=== PATIENT | male | born 1945 | race Caucasian/White ===

== ENCOUNTER 2017-03-31 12:27 | Inpatient (IN) ==
[2017-03-31] MEDS ORDERED: diphenhydrAMINE CAP 25 MG CAPSULE PO PRN (15:23)
[2017-03-31] MEDS ORDERED: POTASSIUM CHLORIDE 20 MEQ TABLET PO PRN (15:23)
[2017-03-31] MEDS ORDERED: MAGNESIUM SULF RIDER 2 GM in PREMIX 1 EACH IV PRN (15:23)
[2017-03-31] MEDS ORDERED: MAGNESIUM SULF RIDER 4 GM in PREMIX 1 EACH IV PRN (15:23)
[2017-03-31] MEDS ORDERED: DOCUSATE SODIUM 100 MG CAPSULE PO PRN (15:23)
[2017-03-31] MEDS ORDERED: LACTULOSE 20 GM/30 ML UDCUP PO PRN (15:23)
[2017-03-31] MEDS ORDERED: ONDANSETRON 4 MG/2 ML VIAL IV PRN (15:23)
[2017-03-31] MEDS ORDERED: ACETAMINOPHEN 325 MG TABLET PO PRN (15:23)
[2017-03-31] MEDS ORDERED: ZALEPLON 5 MG CAPSULE PO PRN (15:23)
[2017-03-31] MEDS ORDERED: ceFAZolin 1,000 MG VIAL IRRIG ONE (15:36)
[2017-03-31] MEDS ORDERED: diphenhydrAMINE CAP 25 MG CAPSULE PO ONE (15:36)
[2017-03-31] MEDS ORDERED: DIAZEPAM 5 MG TABLET PO ONE (15:36)
[2017-03-31 16:20] LABS: Basophils # 0.1 10*3/uL (0.0-0.2); Basophils % 0.7 % (0.0-0.8); Eosinophils # 0.7 10*3/uL (0.0-0.87); Eosinophils % 7.4 % (0.00-10.9); Hematocrit 34.4 VOL% (42.0-52.0); Hemoglobin 11.9 GM/DL (14.0-18.0); Immature Granulocytes % 0.4 %; Immature Granulocytes Absolute 0.04 #; Lymphocytes # 2.5 10*3/uL (1.4-4.0); Lymphocytes % 26.3 % (21.2-54.2); Mean Corpuscular HGB Conc 34.6 GM/DL (32-36); Mean Corpuscular Hemoglobin 34 PG (27-34); Mean Corpuscular Volume 98.9 FL (87-102); Mean Platelet Volume 9.7 FL (9.6-12.0); Monocytes # 0.7 10*3/uL (0.11-0.8); Monocytes % 7.7 % (1.7-12.7); Neutrophils # 5.5 10*3/uL (1.4-7.4); Neutrophils % 57.5 % (38.7-73.9); Platelet Count 230 T/CUMM (130-400); Red Blood Count 3.48 MC/CUMM (3.8-5.5); Red Cell Distribution Width 14.2 % (9.3-17.3); White Blood Count 9.6 T/CUMM (4-12)
[2017-03-31 16:39] LABS: Albumin 3.5 G/DL (3.4-5.0); Bilirubin,Total 0.5 MG/DL (0.2-1.0); Calcium 9.4 MG/DL (8.5-10.1); Osmolality,Calculated 292.4 MOS/KG (273-304); Potassium 4.3 MMOL/L (3.5-5.1); Total Protein 6.7 G/DL (6.4-8.3)
[2017-03-31] MEDS ORDERED: oxyCODONE/ACETAMINOPHEN 5-325 MG TABLET PO PRN (16:52)
[2017-03-31] MEDS: PANTOPRAZOLE 40 MG TABLET PO SCH (20:47)
[2017-03-31] MEDS: FUROSEMIDE 40 MG TABLET PO SCH (20:47)
[2017-04-01 05:39] LABS: Basophils # 0.1 10*3/uL (0.0-0.2); Basophils % 0.8 % (0.0-0.8); Eosinophils # 0.7 10*3/uL (0.0-0.87); Eosinophils % 7.8 % (0.00-10.9); Hematocrit 35.7 VOL% (42.0-52.0); Hemoglobin 12.4 GM/DL (14.0-18.0); Immature Granulocytes % 0.3 %; Immature Granulocytes Absolute 0.03 #; Lymphocytes # 2.9 10*3/uL (1.4-4.0); Lymphocytes % 31.8 % (21.2-54.2); Mean Corpuscular HGB Conc 34.7 GM/DL (32-36); Mean Corpuscular Hemoglobin 34 PG (27-34); Mean Corpuscular Volume 97.5 FL (87-102); Mean Platelet Volume 9.7 FL (9.6-12.0); Monocytes # 0.7 10*3/uL (0.11-0.8); Neutrophils # 4.7 10*3/uL (1.4-7.4); Neutrophils % 51.3 % (38.7-73.9); Platelet Count 230 T/CUMM (130-400); Red Blood Count 3.66 MC/CUMM (3.8-5.5); Red Cell Distribution Width 13.9 % (9.3-17.3); White Blood Count 9.2 T/CUMM (4-12)
[2017-04-01 05:59] LABS: Calcium 9.3 MG/DL (8.5-10.1); Magnesium 2.3 MG/DL (1.8-2.4); Osmolality,Calculated 283.7 MOS/KG (273-304); Potassium 3.8 MMOL/L (3.5-5.1)
[2017-04-01 06:00] LABS: INR 1.2; PT Patient Result 12.7 SECS
[2017-04-01] MEDS ORDERED: DILTIAZEM CD 240 MG CAPSULE PO SCH (09:00)
[2017-04-01] MEDS ORDERED: ceFAZolin 1,000 MG VIAL IRRIG ONE (10:00)
[2017-04-01] MEDS ORDERED: diphenhydrAMINE CAP 25 MG CAPSULE PO ONE (10:00)
[2017-04-01] MEDS ORDERED: DIAZEPAM 5 MG TABLET PO ONE (10:00)
[2017-04-01] MEDS: ASPIRIN CHEW 81 MG TABLET PO SCH (10:02)
[2017-04-01] MEDS: FUROSEMIDE 40 MG TABLET PO SCH ×2 (10:03→20:53)
[2017-04-01] MEDS: amLODIPine 10 MG TABLET PO SCH (10:03)
[2017-04-01] MEDS: POTASSIUM CHLORIDE 10 MEQ TABLET PO SCH (10:03)
[2017-04-01] MEDS: DILTIAZEM CD 240 MG CAPSULE PO SCH (10:03)
[2017-04-01] MEDS: SIMVASTATIN 20 MG TABLET PO SCH (10:04)
[2017-04-01] MEDS: LISINOPRIL 10 MG TABLET PO SCH (10:04)
[2017-04-01] MEDS: PANTOPRAZOLE 40 MG TABLET PO SCH (10:04)
[2017-04-01] MEDS ORDERED: HEPARIN 10,000 UNIT/10 ML VIAL ONE (12:25)
[2017-04-01] MEDS ORDERED: PHENYLEPHRINE 50 MG/5 ML VIAL ONE (12:25)
[2017-04-01] MEDS ORDERED: KETOROLAC 30 MG/1 ML VIAL ONE (12:25)
[2017-04-01] MEDS ORDERED: ETOMIDATE 20 MG/10 ML VIAL IV ONE (12:25)
[2017-04-01] MEDS ORDERED: PROPOFOL 200 MG/20 ML VIAL IV ONE (12:25)
[2017-04-01] MEDS ORDERED: ONDANSETRON 4 MG/2 ML VIAL ONE (12:25)
[2017-04-01] MEDS ORDERED: PHENYLEPHRINE 1 MG/10 ML SYRINGE IV ONE (12:25)
[2017-04-01] MEDS ORDERED: LIDOCAINE 1% 5 ML VIAL ONE (12:25)
[2017-04-01] MEDS ORDERED: DEXAMETHASONE 10 MG/1 ML VIAL ONE (12:25)
[2017-04-01] MEDS ORDERED: LIDOCAINE 1% 20 ML VIAL ONE (12:31)
[2017-04-01] MEDS ORDERED: HEPARIN/NACL 0.9% 2 UNITS/ML 500 ML IV ONE ×2 (12:31→13:38)
[2017-04-01] MEDS ORDERED: HEPARIN/NACL 0.9% 2 UNITS/ML 1,000 ML IV ONE (12:33)
[2017-04-01] MEDS ORDERED: ceFAZolin 1,000 MG VIAL ONE (12:34)
[2017-04-01] MEDS ORDERED: oxyCODONE/ACETAMINOPHEN 5-325 MG TABLET PO PRN (14:26)
[2017-04-01] MEDS ORDERED: DEXTROSE 50% 25 GM/50 ML VIAL IV PRN (14:30)
[2017-04-01] MEDS ORDERED: GLUCAGON 1 MG VIAL IM PRN (14:30)
[2017-04-01] MEDS: INSULIN REGULAR 100 UNIT/ML SUBCUT SCH ×2 (17:01→22:17)
[2017-04-01] MEDS: valACYclovir 500 MG TABLET PO SCH ×2 (17:06→21:37)
[2017-04-01] MEDS: CARBIDOPA/LEVODOPA 10-100 MG TABLET PO SCH ×2 (17:07→21:37)
[2017-04-01] MEDS: SODIUM CHLORIDE 0.9% 1,000 ML IV SCH (17:10)
[2017-04-01] MEDS ORDERED: METOPROLOL TARTRATE 100 MG TABLET PO ONE (17:29)
[2017-04-01] MEDS: METOPROLOL TARTRATE 100 MG TABLET PO SCH (20:53)
[2017-04-01] MEDS: GABAPENTIN 600 MG TABLET PO SCH (21:37)
[2017-04-01] MEDS ORDERED: fentaNYL 100 MCG/2 ML VIAL ONE (22:39)
[2017-04-01] MEDS ORDERED: MIDAZOLAM 2 MG/2 ML VIAL ONE (22:39)
[2017-04-01] MEDS ORDERED: KETAMINE 500 MG/10 ML VIAL ONE (22:40)
[2017-04-02] MEDS: SODIUM CHLORIDE 0.9% 1,000 ML IV SCH ×3 (01:31→13:43)
[2017-04-02 04:47] LABS: Basophils % 0.2 % (0.0-0.8); Hemoglobin 11.5 GM/DL (14.0-18.0); Immature Granulocytes % 0.7 %; Lymphocytes # 1.1 10*3/uL (1.4-4.0); Lymphocytes % 6.9 % (21.2-54.2); Mean Corpuscular HGB Conc 34.8 GM/DL (32-36); Mean Corpuscular Hemoglobin 34 PG (27-34); Mean Corpuscular Volume 96.8 FL (87-102); Mean Platelet Volume 10.1 FL (9.6-12.0); Monocytes # 0.4 10*3/uL (0.11-0.8); Monocytes % 2.6 % (1.7-12.7); Neutrophils # 13.7 10*3/uL (1.4-7.4); Neutrophils % 89.6 % (38.7-73.9); Platelet Count 241 T/CUMM (130-400); Red Blood Count 3.41 MC/CUMM (3.8-5.5); Red Cell Distribution Width 13.6 % (9.3-17.3); White Blood Count 15.3 T/CUMM (4-12)
[2017-04-02 05:19] LABS: Calcium 8.9 MG/DL (8.5-10.1); Potassium 4.4 MMOL/L (3.5-5.1)
[2017-04-02] MEDS ORDERED: glipiZIDE 5 MG TABLET PO SCH (08:00)
[2017-04-02] MEDS ORDERED: LEVOTHYROXINE 25 MCG TABLET PO SCH (09:00)
[2017-04-02] MEDS ORDERED: LISINOPRIL 10 MG TABLET PO SCH (09:00)
[2017-04-02] MEDS ORDERED: metOLazone 5 MG TABLET PO SCH (09:00)
[2017-04-02] MEDS ORDERED: PANTOPRAZOLE 40 MG TABLET PO SCH (09:00)
[2017-04-02] MEDS: INSULIN REGULAR 100 UNIT/ML SUBCUT SCH ×2 (09:31→12:04)
[2017-04-02] MEDS: SIMVASTATIN 20 MG TABLET PO SCH (09:32)
[2017-04-02] MEDS: LISINOPRIL 10 MG TABLET PO SCH (09:32)
[2017-04-02] MEDS: amLODIPine 10 MG TABLET PO SCH (09:32)
[2017-04-02] MEDS: FUROSEMIDE 40 MG TABLET PO SCH (09:32)
[2017-04-02] MEDS: METOPROLOL TARTRATE 100 MG TABLET PO SCH (09:33)
[2017-04-02] MEDS: CARBIDOPA/LEVODOPA 10-100 MG TABLET PO SCH (09:33)
[2017-04-02] MEDS: GABAPENTIN 600 MG TABLET PO SCH (09:33)
[2017-04-02] MEDS: ASPIRIN CHEW 81 MG TABLET PO SCH (09:34)
[2017-04-02] MEDS: PANTOPRAZOLE 40 MG TABLET PO SCH (09:34)
[2017-04-02] MEDS: POTASSIUM CHLORIDE 10 MEQ TABLET PO SCH (09:34)
[2017-04-02] MEDS: DILTIAZEM CD 240 MG CAPSULE PO SCH (09:34)
[2017-04-02 12:37] VITALS: BP 125/64
== END 2017-04-02 14:00 | disposition home or self-care (01) | DRG 229 ==
LOC: N.CARD 12:27 → N.TELEN 12:27 → EDSTATUS 04-01 13:00
PROVIDERS: ADMIT Internal Medicine Cardiovascular Disease; ATTEND Internal Medicine Cardiovascular Disease
PROC: CLMICRA (2017-04-01 13:15)

== ENCOUNTER 2017-08-17 14:10 | Inpatient (IN) ==
[2017-08-17] MEDS ORDERED: GLUCAGON 1 MG VIAL IM PRN (16:56)
[2017-08-17] MEDS ORDERED: ONDANSETRON 4 MG/2 ML VIAL IV PRN (16:56)
[2017-08-17] MEDS ORDERED: DEXTROSE 50% 25 GM/50 ML VIAL IV PRN (16:56)
[2017-08-17] MEDS ORDERED: NITROGLYCERIN SL 0.4 MG TABLET SL PRN (17:00)
[2017-08-17] MEDS: SODIUM CHLOR 0.9% KCL 20 MEQ 20 MEQ/1,000 ML BAG IV SCH (17:35)
[2017-08-17] MEDS ORDERED: diphenhydrAMINE CAP 25 MG CAPSULE PO PRN (17:42)
[2017-08-17 20:07] LABS: Hepatitis A Ab IgM Result Negative (Negative); Hepatitis B Core IgM Quant 0.18 Index; Hepatitis B Core IgM Result Negative (Negative); Hepatitis B Surface Ag Quant 0.23 Index; Hepatitis B Surface Ag Result Negative (Negative); Hepatitis C Virus Ab Quant > 11.00 Index; Hepatitis C Virus Ab Result Positive (Negative)
[2017-08-17] MEDS ORDERED: ENOXAPARIN 40 MG/0.4 ML SYRINGE SUBCUT SCH (21:00)
[2017-08-17] MEDS: METOPROLOL TARTRATE 100 MG TABLET PO SCH (21:40)
[2017-08-17] MEDS: INSULIN LISPRO 100 UNIT/ML SUBCUT SCH (21:40)
[2017-08-17] MEDS: CARBIDOPA/LEVODOPA 10-100 MG TABLET PO SCH (21:40)
[2017-08-17] MEDS: FUROSEMIDE 40 MG TABLET PO SCH (21:40)
[2017-08-17] MEDS: GABAPENTIN 600 MG TABLET PO SCH (21:40)
[2017-08-18 05:45] LABS: Basophils # 0.1 10*3/uL (0.0-0.2); Hemoglobin 10.6 GM/DL (14.0-18.0); Immature Granulocytes % 0.3 %; Immature Granulocytes Absolute 0.02 #; Lymphocytes # 1.6 10*3/uL (1.4-4.0); Lymphocytes % 23.1 % (21.2-54.2); Mean Corpuscular HGB Conc 36.6 GM/DL (32-36); Mean Corpuscular Hemoglobin 31 PG (27-34); Mean Corpuscular Volume 85.5 FL (87-102); Mean Platelet Volume 10.4 FL (9.6-12.0); Monocytes # 0.7 10*3/uL (0.11-0.8); Monocytes % 10.9 % (1.7-12.7); Neutrophils # 3.5 10*3/uL (1.4-7.4); Neutrophils % 50.7 % (38.7-73.9); Platelet Count 338 T/CUMM (130-400); Red Blood Count 3.39 MC/CUMM (3.8-5.5); White Blood Count 6.8 T/CUMM (4-12)
[2017-08-18 06:17] LABS: Eosinophils 16 % (0-10); Giant Platelets Few; Hypochromasia 1+; Lymphocytes 21 % (20-55); Ovalocytes Slight; Platelet Estimate Adequate; Segmented Neutrophils 52 % (50-85); Target Cells Few; Total Cells Counted 100
[2017-08-18 06:37] LABS: Alanine Aminotransferase 81 U/L (16-61); Albumin 2.7 G/DL (3.4-5.0); Alkaline Phosphatase 274 U/L (45-117); Aspartate Amino Transferase 84 U/L (0-37); Blood Urea Nitrogen 15 MG/DL (7-18); Calcium 8.3 MG/DL (8.5-10.1); Cholesterol 159 MG/DL (50-200); Glucose 99 MG/DL (74-106); HDL Cholesterol < 10 MG/DL (40-60); Osmolality,Calculated 279.4 MOS/KG (273-304); Potassium 3.5 MMOL/L (3.5-5.1); Sodium 140 MMOL/L (136-145); Thyroid Stimulating Hormone 0.635 uIU/ml (0.358-3.74); Total Protein 6.2 G/DL (6.4-8.3); Triglycerides 326 MG/DL (2-150); VLDL CHOLESTEROL 65.2 MG/DL
[2017-08-18] MEDS: POTASSIUM CHLORIDE 10 MEQ TABLET PO SCH (08:55)
[2017-08-18] MEDS: GABAPENTIN 600 MG TABLET PO SCH ×3 (08:55→21:33)
[2017-08-18] MEDS: METOPROLOL TARTRATE 100 MG TABLET PO SCH ×2 (08:55→21:33)
[2017-08-18] MEDS: FUROSEMIDE 40 MG TABLET PO SCH ×2 (08:55→21:33)
[2017-08-18] MEDS: DILTIAZEM CD 240 MG CAPSULE PO SCH (08:55)
[2017-08-18] MEDS: SODIUM CHLOR 0.9% KCL 20 MEQ 20 MEQ/1,000 ML BAG IV SCH (08:55)
[2017-08-18] MEDS: LEVOTHYROXINE 25 MCG TABLET PO SCH (08:55)
[2017-08-18] MEDS: glipiZIDE 5 MG TABLET PO SCH (08:55)
[2017-08-18] MEDS: PARoxetine 20 MG TABLET PO SCH (08:56)
[2017-08-18] MEDS: metOLazone 5 MG TABLET PO SCH (08:56)
[2017-08-18] MEDS: PANTOPRAZOLE 40 MG TABLET PO SCH (08:56)
[2017-08-18] MEDS: amLODIPine 10 MG TABLET PO SCH (08:56)
[2017-08-18] MEDS: LISINOPRIL 10 MG TABLET PO SCH (08:56)
[2017-08-18] MEDS: CARBIDOPA/LEVODOPA 10-100 MG TABLET PO SCH ×3 (08:56→21:33)
[2017-08-18] MEDS ORDERED: ASPIRIN CHEW 81 MG TABLET PO SCH (09:00)
[2017-08-18] MEDS: INSULIN LISPRO 100 UNIT/ML SUBCUT SCH ×4 (09:07→21:34)
[2017-08-18 10:48] LABS: Apearance,Urine CLEAR (Clear); Blood, Urine Small mg/dL (Negative); Glucose,Urine (UA) Negative (Negative); Ketones,Urine Negative (Negative); Mucus,Urine Occasional /LPF (Occasional); Nitrite,Urine Negative (Negative); Protein,Urine Negative; RBC,Urine <1 /HPF (0-4); Squamous Epithelial Cell,Urine Occasional /HPF (0-10); Urine Color Amber (Yellow); Urine Specific Gravity 1.011 (1.001-1.035); WBC,Urine <1 /HPF (0-6)
[2017-08-18 10:49] LABS: Bilirubin,Urine Moderate mg/dL (Negative)
[2017-08-18] MEDS ORDERED: HYDROCORTISONE 1% CREAM 28 GM TUBE TOP PRN (16:39)
[2017-08-18] MEDS: SODIUM CHLORIDE 0.45% 1,000 ML IV SCH (16:40)
[2017-08-19 06:55] LABS: Basophils # 0.1 10*3/uL (0.0-0.2); Basophils % 0.8 % (0.0-0.8); Eosinophils % 13.3 % (0.00-10.9); Hematocrit 34.2 VOL% (42.0-52.0); Immature Granulocytes % 0.3 %; Immature Granulocytes Absolute 0.02 #; Lymphocytes # 1.6 10*3/uL (1.4-4.0); Lymphocytes % 21.7 % (21.2-54.2); Mean Corpuscular HGB Conc 35.1 GM/DL (32-36); Mean Corpuscular Hemoglobin 30 PG (27-34); Mean Corpuscular Volume 86.6 FL (87-102); Mean Platelet Volume 10.5 FL (9.6-12.0); Monocytes # 0.7 10*3/uL (0.11-0.8); Monocytes % 9.4 % (1.7-12.7); Neutrophils # 3.9 10*3/uL (1.4-7.4); Neutrophils % 54.5 % (38.7-73.9); Platelet Count 393 T/CUMM (130-400); Red Blood Count 3.95 MC/CUMM (3.8-5.5); Red Cell Distribution Width 20.2 % (9.3-17.3); White Blood Count 7.2 T/CUMM (4-12)
[2017-08-19 07:02] LABS: INR 1.1; PT Patient Result 11.7 SECS
[2017-08-19 07:17] LABS: Band Neutrophils 1 % (0-10); Eosinophils 7 % (0-10); Giant Platelets Few; Hypochromasia 1+; Lymphocytes 28 % (20-55); Platelet Estimate Adequate; Segmented Neutrophils 47 % (50-85); Target Cells Few; Total Cells Counted 100
[2017-08-19 07:44] LABS: Albumin 2.9 G/DL (3.4-5.0); Calcium 9.6 MG/DL (8.5-10.1); Osmolality,Calculated 279.5 MOS/KG (273-304); Potassium 3.8 MMOL/L (3.5-5.1); Total Protein 7.1 G/DL (6.4-8.3)
[2017-08-19 07:45] LABS: Bilirubin,Total 14.8 MG/DL (0.2-1.0)
[2017-08-19] MEDS: INSULIN LISPRO 100 UNIT/ML SUBCUT SCH ×4 (09:54→22:17)
[2017-08-19] MEDS: glipiZIDE 5 MG TABLET PO SCH (09:54)
[2017-08-19] MEDS: LEVOTHYROXINE 25 MCG TABLET PO SCH (09:54)
[2017-08-19] MEDS: METOPROLOL TARTRATE 100 MG TABLET PO SCH (09:55)
[2017-08-19] MEDS: FUROSEMIDE 40 MG TABLET PO SCH (09:55)
[2017-08-19] MEDS: POTASSIUM CHLORIDE 10 MEQ TABLET PO SCH ×2 (09:55→12:36)
[2017-08-19] MEDS: DILTIAZEM CD 240 MG CAPSULE PO SCH ×2 (09:55→12:35)
[2017-08-19] MEDS: PANTOPRAZOLE 40 MG TABLET PO SCH ×2 (09:56→12:34)
[2017-08-19] MEDS: GABAPENTIN 600 MG TABLET PO SCH ×3 (09:56→21:02)
[2017-08-19] MEDS: PARoxetine 20 MG TABLET PO SCH (09:56)
[2017-08-19] MEDS: amLODIPine 10 MG TABLET PO SCH (09:56)
[2017-08-19] MEDS: LISINOPRIL 10 MG TABLET PO SCH (09:56)
[2017-08-19] MEDS: metOLazone 5 MG TABLET PO SCH ×2 (09:56→12:37)
[2017-08-19] MEDS: CARBIDOPA/LEVODOPA 10-100 MG TABLET PO SCH ×3 (09:56→21:01)
[2017-08-19] MEDS ORDERED: DEXTROSE 50% 25 GM/50 ML VIAL IV PRN (10:49)
[2017-08-19] MEDS ORDERED: GLUCAGON 1 MG VIAL IM PRN (10:49)
[2017-08-19] MEDS: SODIUM CHLORIDE 0.45% 1,000 ML IV SCH (11:15)
[2017-08-19] MEDS: HYDROmorphone 2 MG TABLET PO PRN ×2 (12:30→21:01)
[2017-08-19] MEDS: hydrOXYzine HCL 25 MG TABLET PO PRN ×2 (12:31→21:01)
[2017-08-19] MEDS: CHOLESTYRAMINE 4 GM PACK PO SCH ×2 (14:59→21:07)
[2017-08-19] MEDS: DILTIAZEM 60 MG TABLET PO SCH (21:01)
[2017-08-20] MEDS: SODIUM CHLORIDE 0.45% 1,000 ML IV SCH ×2 (02:34→15:33)
[2017-08-20] MEDS: LEVOTHYROXINE 25 MCG TABLET PO SCH (06:37)
[2017-08-20 07:01] LABS: Albumin 2.8 G/DL (3.4-5.0); Bilirubin,Direct 10.15 MG/DL (0.0-0.20); Total Protein 6.4 G/DL (6.4-8.3)
[2017-08-20 07:02] LABS: Bilirubin,Indirect 2.6 MG/DL (0.0-1.0); Bilirubin,Total 12.7 MG/DL (0.2-1.0)
[2017-08-20] MEDS: INSULIN LISPRO 100 UNIT/ML SUBCUT SCH ×4 (09:00→22:23)
[2017-08-20] MEDS: DILTIAZEM 60 MG TABLET PO SCH ×2 (09:20→20:52)
[2017-08-20] MEDS: CHOLESTYRAMINE 4 GM PACK PO SCH ×3 (09:21→20:48)
[2017-08-20] MEDS: PARoxetine 20 MG TABLET PO SCH (09:21)
[2017-08-20] MEDS: CARBIDOPA/LEVODOPA 10-100 MG TABLET PO SCH ×3 (09:21→20:47)
[2017-08-20] MEDS: POTASSIUM CHLORIDE 10 MEQ TABLET PO SCH (09:21)
[2017-08-20] MEDS: PANTOPRAZOLE 40 MG TABLET PO SCH (09:21)
[2017-08-20] MEDS: glipiZIDE 5 MG TABLET PO SCH (09:21)
[2017-08-20] MEDS: GABAPENTIN 600 MG TABLET PO SCH ×3 (09:21→20:46)
[2017-08-20] MEDS: HYDROmorphone 2 MG TABLET PO PRN ×2 (09:31→20:47)
[2017-08-20] MEDS ORDERED: SKIN HEALING OINT (AQUAPHOR) 50 GM TUBE TOP PRN (13:27)
[2017-08-21] MEDS: SODIUM CHLORIDE 0.45% 1,000 ML IV SCH ×2 (06:01→12:58)
[2017-08-21] MEDS: LEVOTHYROXINE 25 MCG TABLET PO SCH (06:02)
[2017-08-21 07:26] LABS: Albumin 2.9 G/DL (3.4-5.0); Bilirubin,Direct 10.79 MG/DL (0.0-0.20); Total Protein 6.8 G/DL (6.4-8.3)
[2017-08-21 07:28] LABS: Bilirubin,Indirect 2.5 MG/DL (0.0-1.0); Bilirubin,Total 13.3 MG/DL (0.2-1.0)
[2017-08-21] MEDS: INSULIN LISPRO 100 UNIT/ML SUBCUT SCH ×4 (08:07→21:44)
[2017-08-21] MEDS: DILTIAZEM 60 MG TABLET PO SCH ×2 (09:17→21:43)
[2017-08-21] MEDS: CHOLESTYRAMINE 4 GM PACK PO SCH ×3 (09:17→21:44)
[2017-08-21] MEDS: POTASSIUM CHLORIDE 10 MEQ TABLET PO SCH (09:17)
[2017-08-21] MEDS: HYDROmorphone 2 MG TABLET PO PRN ×3 (09:17→21:52)
[2017-08-21] MEDS: CARBIDOPA/LEVODOPA 10-100 MG TABLET PO SCH ×3 (09:18→21:43)
[2017-08-21] MEDS: PARoxetine 20 MG TABLET PO SCH (09:18)
[2017-08-21] MEDS: GABAPENTIN 600 MG TABLET PO SCH ×3 (09:18→21:43)
[2017-08-21] MEDS: PANTOPRAZOLE 40 MG TABLET PO SCH (09:18)
[2017-08-21] MEDS: glipiZIDE 5 MG TABLET PO SCH (09:23)
[2017-08-21] MEDS ORDERED: HYDROmorphone 2 MG TABLET PO PRN (09:53)
[2017-08-21] MEDS ORDERED: hydrOXYzine HCL 25 MG TABLET PO PRN (10:05)
[2017-08-22] MEDS: SODIUM CHLORIDE 0.45% 1,000 ML IV SCH ×2 (03:07→15:31)
[2017-08-22 07:01] LABS: Albumin 3.3 G/DL (3.4-5.0); Bilirubin,Direct 12.86 MG/DL (0.0-0.20); Total Protein 7.6 G/DL (6.4-8.3)
[2017-08-22 07:03] LABS: Bilirubin,Indirect 3.5 MG/DL (0.0-1.0); Bilirubin,Total 16.4 MG/DL (0.2-1.0)
[2017-08-22 07:52] LABS: Basophils # 0.1 10*3/uL (0.0-0.2); Basophils % 0.8 % (0.0-0.8); Eosinophils # 0.9 10*3/uL (0.0-0.87); Eosinophils % 7.6 % (0.00-10.9); Hematocrit 37.7 VOL% (42.0-52.0); Hemoglobin 12.8 GM/DL (14.0-18.0); Immature Granulocytes % 0.3 %; Immature Granulocytes Absolute 0.04 #; Lymphocytes # 2.9 10*3/uL (1.4-4.0); Lymphocytes % 24.3 % (21.2-54.2); Mean Corpuscular Hemoglobin 30 PG (27-34); Mean Corpuscular Volume 88.9 FL (87-102); Monocytes # 1.2 10*3/uL (0.11-0.8); Monocytes % 9.8 % (1.7-12.7); Neutrophils # 6.9 10*3/uL (1.4-7.4); Neutrophils % 57.2 % (38.7-73.9); Platelet Count 448 T/CUMM (130-400); Red Blood Count 4.24 MC/CUMM (3.8-5.5); Red Cell Distribution Width 22.5 % (9.3-17.3)
[2017-08-22 08:07] LABS: INR 1.1; PT Patient Result 11.9 SECS
[2017-08-22] MEDS: LEVOTHYROXINE 25 MCG TABLET PO SCH ×2 (08:11→15:29)
[2017-08-22] MEDS: INSULIN LISPRO 100 UNIT/ML SUBCUT SCH ×4 (08:11→20:16)
[2017-08-22 08:21] LABS: Hypochromasia 1+
[2017-08-22 08:22] LABS: Microcytosis 1+; Polychromasia Slight; Target Cells Few
[2017-08-22 08:23] LABS: Platelet Estimate Increased
[2017-08-22 08:26] LABS: Albumin 2.7 G/DL (3.4-5.0); Calcium 9.1 MG/DL (8.5-10.1); Osmolality,Calculated 274.8 MOS/KG (273-304); Potassium 3.4 MMOL/L (3.5-5.1); Total Protein 6.2 G/DL (6.4-8.3)
[2017-08-22 08:28] LABS: Bilirubin,Total 13.9 MG/DL (0.2-1.0)
[2017-08-22] MEDS ORDERED: LIDOCAINE 100 MG/5 ML SYRINGE ONE (09:00)
[2017-08-22] MEDS ORDERED: PROPOFOL 200 MG/20 ML VIAL IV ONE (09:00)
[2017-08-22] MEDS: PARoxetine 20 MG TABLET PO SCH ×2 (09:28→15:29)
[2017-08-22] MEDS: GABAPENTIN 600 MG TABLET PO SCH ×3 (09:28→20:16)
[2017-08-22] MEDS: PANTOPRAZOLE 40 MG TABLET PO SCH ×2 (09:28→15:29)
[2017-08-22] MEDS: DILTIAZEM 60 MG TABLET PO SCH ×3 (09:28→20:23)
[2017-08-22] MEDS: POTASSIUM CHLORIDE 10 MEQ TABLET PO SCH ×2 (09:28→15:29)
[2017-08-22] MEDS: CARBIDOPA/LEVODOPA 10-100 MG TABLET PO SCH ×3 (09:28→20:15)
[2017-08-22] MEDS: CHOLESTYRAMINE 4 GM PACK PO SCH ×3 (09:28→20:16)
[2017-08-22] MEDS: glipiZIDE 5 MG TABLET PO SCH (09:28)
[2017-08-22] MEDS: HYDROmorphone 2 MG TABLET PO PRN ×2 (15:29→20:15)
[2017-08-23] MEDS: HYDROmorphone 2 MG TABLET PO PRN ×4 (00:21→09:15)
[2017-08-23] MEDS: SODIUM CHLORIDE 0.45% 1,000 ML IV SCH (03:44)
[2017-08-23] MEDS: LEVOTHYROXINE 25 MCG TABLET PO SCH (06:03)
[2017-08-23] MEDS: INSULIN LISPRO 100 UNIT/ML SUBCUT SCH ×2 (08:25→11:16)
[2017-08-23 08:59] LABS: Albumin 2.9 G/DL (3.4-5.0); Bilirubin,Direct 12.32 MG/DL (0.0-0.20); Total Protein 6.7 G/DL (6.4-8.3)
[2017-08-23] MEDS: glipiZIDE 5 MG TABLET PO SCH (09:09)
[2017-08-23] MEDS: DILTIAZEM 60 MG TABLET PO SCH (09:09)
[2017-08-23] MEDS: PARoxetine 20 MG TABLET PO SCH (09:09)
[2017-08-23] MEDS: CHOLESTYRAMINE 4 GM PACK PO SCH (09:09)
[2017-08-23] MEDS: POTASSIUM CHLORIDE 10 MEQ TABLET PO SCH (09:09)
[2017-08-23] MEDS: CARBIDOPA/LEVODOPA 10-100 MG TABLET PO SCH (09:09)
[2017-08-23] MEDS: PANTOPRAZOLE 40 MG TABLET PO SCH (09:09)
[2017-08-23] MEDS: GABAPENTIN 600 MG TABLET PO SCH (09:09)
[2017-08-23 09:12] LABS: Bilirubin,Indirect 3.8 MG/DL (0.0-1.0); Bilirubin,Total 16.1 MG/DL (0.2-1.0)
[2017-08-23 11:25] VITALS: BP 118/74
== END 2017-08-23 12:43 | disposition home health service (06) | DRG 435 ==
LOC: N.5E 14:37 → SUATTDRO 14:37
PROVIDERS: ADMIT Internal Medicine; ATTEND Hospitalist

== ENCOUNTER 2017-09-05 14:31 | Inpatient (IN) ==
[2017-09-05 15:42] LABS: Basophils # 0.1 10*3/uL (0.0-0.2); Basophils % 0.3 % (0.0-0.8); Eosinophils # 0.2 10*3/uL (0.0-0.87); Eosinophils % 0.7 % (0.00-10.9); Hematocrit 30.8 VOL% (42.0-52.0); Hemoglobin 10.6 GM/DL (14.0-18.0); Immature Granulocytes % 1.2 %; Immature Granulocytes Absolute 0.37 #; Lymphocytes # 1.6 10*3/uL (1.4-4.0); Lymphocytes % 5.4 % (21.2-54.2); Mean Corpuscular HGB Conc 34.4 GM/DL (32-36); Mean Corpuscular Hemoglobin 32 PG (27-34); Mean Corpuscular Volume 92.2 FL (87-102); Mean Platelet Volume 9.7 FL (9.6-12.0); Monocytes # 1.8 10*3/uL (0.11-0.8); Monocytes % 5.9 % (1.7-12.7); Neutrophils # 25.7 10*3/uL (1.4-7.4); Neutrophils % 86.5 % (38.7-73.9); Platelet Count 452 T/CUMM (130-400); Red Blood Count 3.34 MC/CUMM (3.8-5.5); Red Cell Distribution Width 17.7 % (9.3-17.3); White Blood Count 29.7 T/CUMM (4-12)
[2017-09-05 16:21] LABS: Albumin 2.2 G/DL (3.4-5.0); Bilirubin,Total 6.9 MG/DL (0.2-1.0); Calcium 8.8 MG/DL (8.5-10.1); Osmolality,Calculated 258.8 MOS/KG (273-304); Total Protein 7.6 G/DL (6.4-8.3)
[2017-09-05] MEDS ORDERED: DEXTROSE 50% 25 GM/50 ML VIAL IV STA ×2 (16:25→19:42)
[2017-09-05] MEDS ORDERED: ONDANSETRON 4 MG/2 ML VIAL ONE (16:33)
[2017-09-05] MEDS ORDERED: DEXTROSE 50% 25 GM/50 ML SYRINGE IV ONE ×2 (16:33→19:44)
[2017-09-05] MEDS ORDERED: SODIUM CHLORIDE 0.9% 1,000 ML IV STA (16:37)
[2017-09-05] MEDS ORDERED: ONDANSETRON 4 MG/2 ML VIAL IV STA (16:37)
[2017-09-05 17:05] LABS: Eosinophils 2 % (0-10); Lymphocytes 3 % (20-55); Polychromasia Few; Segmented Neutrophils 94 % (50-85); Target Cells Few; Total Cells Counted 100
[2017-09-05 17:06] LABS: Platelet Estimate Normal
[2017-09-05 17:46] LABS: HIV Antigen/Antibody Result Nonreactive (Nonreactive); Hepatitis A Ab IgM Result Negative (Negative); Hepatitis B Core IgM Result Negative (Negative); Hepatitis B Surface Ag Quant < 0.10 Index; Hepatitis B Surface Ag Result Negative (Negative); Hepatitis C Virus Ab Quant > 11.00 Index; Hepatitis C Virus Ab Result Positive (Negative)
[2017-09-05] MEDS ORDERED: ACETAMINOPHEN 325 MG TABLET PO PRN (18:18)
[2017-09-05] MEDS ORDERED: ONDANSETRON 4 MG/2 ML VIAL IV PRN (18:18)
[2017-09-05 18:39] LABS: Apearance,Urine Slightly Hazy (Clear); Blood, Urine Small mg/dL (Negative); Glucose,Urine (UA) 50 mg/dL (Negative); Ketones,Urine Negative (Negative); Nitrite,Urine Negative (Negative); Protein,Urine 100 MG/DL; RBC,Urine <1 /HPF (0-4); Squamous Epithelial Cell,Urine Occasional /HPF (0-10); Urine Color Amber (Yellow); Urine Specific Gravity 1.016 (1.001-1.035); WBC,Urine 5 /HPF (0-6)
[2017-09-05 18:40] LABS: Bilirubin,Urine Moderate mg/dL (Negative)
[2017-09-05] MEDS ORDERED: PIPERACILLIN/TAZOBACTAM 3,375 MG VIAL IV ONE (18:55)
[2017-09-05] MEDS ORDERED: SODIUM CHLORIDE 0.9% 100 ML IV ONE (18:55)
[2017-09-05] MEDS ORDERED: DEXTROSE 50% 25 GM/50 ML VIAL IV PRN (19:04)
[2017-09-05] MEDS ORDERED: GLUCAGON 1 MG VIAL IM PRN (19:04)
[2017-09-05] MEDS: PIPERACILLIN/TAZOBACTAM 3,375 MG in SODIUM CHLORIDE 0.9% 100 ML IV SCH (19:04)
[2017-09-05] MEDS ORDERED: SODIUM CHLORIDE 0.9% 3,100 ML IV ONE (19:06)
[2017-09-05] MEDS ORDERED: POTASSIUM CHLORIDE 20 MEQ TABLET PO ONE ×2 (20:06→20:11)
[2017-09-05] MEDS: SODIUM CHLORIDE 0.9% 1,000 ML IV SCH (20:21)
[2017-09-06] MEDS: PIPERACILLIN/TAZOBACTAM 3,375 MG in SODIUM CHLORIDE 0.9% 100 ML IV SCH ×3 (03:02→20:00)
[2017-09-06 06:09] LABS: Basophils # 0.1 10*3/uL (0.0-0.2); Basophils % 0.3 % (0.0-0.8); Eosinophils # 0.5 10*3/uL (0.0-0.87); Eosinophils % 1.9 % (0.00-10.9); Hematocrit 26.8 VOL% (42.0-52.0); Hemoglobin 9.2 GM/DL (14.0-18.0); Lymphocytes # 1.7 10*3/uL (1.4-4.0); Lymphocytes % 6.7 % (21.2-54.2); Mean Corpuscular HGB Conc 34.3 GM/DL (32-36); Mean Corpuscular Hemoglobin 31 PG (27-34); Mean Corpuscular Volume 90.8 FL (87-102); Mean Platelet Volume 10.3 FL (9.6-12.0); Monocytes # 1.4 10*3/uL (0.11-0.8); Monocytes % 5.7 % (1.7-12.7); Neutrophils % 83.4 % (38.7-73.9); Platelet Count 404 T/CUMM (130-400); Red Blood Count 2.95 MC/CUMM (3.8-5.5); Red Cell Distribution Width 17.8 % (9.3-17.3); White Blood Count 25.2 T/CUMM (4-12)
[2017-09-06 06:12] LABS: INR 1.2; PT Patient Result 12.7 SECS
[2017-09-06 06:35] LABS: Band Neutrophils 22 % (0-10); Eosinophils 1 % (0-10); Hypochromasia 2+; Lymphocytes 4 % (20-55); Platelet Estimate Increased; Segmented Neutrophils 70 % (50-85); Target Cells Slight; Total Cells Counted 100
[2017-09-06 06:48] LABS: Albumin 1.8 G/DL (3.4-5.0); Osmolality,Calculated 268.1 MOS/KG (273-304); Potassium 3.5 MMOL/L (3.5-5.1); Total Protein 5.2 G/DL (6.4-8.3)
[2017-09-06] MEDS: SODIUM CHLORIDE 0.9% 1,000 ML IV SCH ×3 (08:34→20:07)
[2017-09-06] MEDS: PANTOPRAZOLE 40 MG VIAL IV SCH (10:09)
[2017-09-06] MEDS ORDERED: hydrOXYzine HCL 25 MG TABLET PO PRN (11:01)
[2017-09-06] MEDS: CARBIDOPA/LEVODOPA 10-100 MG TABLET PO SCH ×3 (11:58→20:01)
[2017-09-06] MEDS: LEVOTHYROXINE 25 MCG TABLET PO SCH (11:58)
[2017-09-06] MEDS ORDERED: MIDAZOLAM 2 MG/2 ML VIAL ONE (13:22)
[2017-09-06] MEDS ORDERED: fentaNYL 100 MCG/2 ML VIAL ONE (13:22)
[2017-09-06] MEDS ORDERED: GLUCAGON 1 MG VIAL ONE (13:31)
[2017-09-06] MEDS ORDERED: MAGNESIUM HYDROXIDE SUSP 30 ML UDCUP PO PRN (17:53)
[2017-09-06] MEDS: SIMVASTATIN 20 MG TABLET PO SCH (20:01)
[2017-09-07] MEDS: PIPERACILLIN/TAZOBACTAM 3,375 MG in SODIUM CHLORIDE 0.9% 100 ML IV SCH ×3 (03:05→19:24)
[2017-09-07 04:52] LABS: Basophils # 0.1 10*3/uL (0.0-0.2); Basophils % 0.3 % (0.0-0.8); Eosinophils # 0.5 10*3/uL (0.0-0.87); Eosinophils % 2.4 % (0.00-10.9); Hematocrit 25.3 VOL% (42.0-52.0); Hemoglobin 8.3 GM/DL (14.0-18.0); Immature Granulocytes % 2.6 %; Immature Granulocytes Absolute 0.55 #; Lymphocytes % 9.3 % (21.2-54.2); Mean Corpuscular HGB Conc 32.8 GM/DL (32-36); Mean Corpuscular Hemoglobin 31 PG (27-34); Mean Corpuscular Volume 95.5 FL (87-102); Mean Platelet Volume 9.8 FL (9.6-12.0); Monocytes # 1.2 10*3/uL (0.11-0.8); Monocytes % 5.7 % (1.7-12.7); Neutrophils # 16.8 10*3/uL (1.4-7.4); Neutrophils % 79.7 % (38.7-73.9); Platelet Count 403 T/CUMM (130-400); Red Blood Count 2.65 MC/CUMM (3.8-5.5); Red Cell Distribution Width 17.7 % (9.3-17.3); White Blood Count 21.1 T/CUMM (4-12)
[2017-09-07 05:13] LABS: Eosinophils 1 % (0-10); Hypochromasia 1+; Lymphocytes 8 % (20-55); Platelet Estimate Adequate; Segmented Neutrophils 85 % (50-85); Total Cells Counted 100
[2017-09-07 05:14] LABS: Giant Platelets Few; Microcytosis Slight; Ovalocytes Slight
[2017-09-07 05:32] LABS: Albumin 1.6 G/DL (3.4-5.0); Bilirubin,Total 4.7 MG/DL (0.2-1.0); Calcium 7.8 MG/DL (8.5-10.1); Osmolality,Calculated 271.8 MOS/KG (273-304); Potassium 3.7 MMOL/L (3.5-5.1); Total Protein 5.1 G/DL (6.4-8.3)
[2017-09-07] MEDS: DILTIAZEM CD 120 MG CAPSULE PO SCH (09:54)
[2017-09-07] MEDS: PANTOPRAZOLE 40 MG VIAL IV SCH (09:55)
[2017-09-07] MEDS: PARoxetine 20 MG TABLET PO SCH (10:54)
[2017-09-07] MEDS: LEVOTHYROXINE 25 MCG TABLET PO SCH (10:54)
[2017-09-07] MEDS: CARBIDOPA/LEVODOPA 10-100 MG TABLET PO SCH ×3 (10:59→21:00)
[2017-09-07] MEDS ORDERED: ONDANSETRON 4 MG/2 ML VIAL ONE (12:12)
[2017-09-07] MEDS ORDERED: LIDOCAINE 2% 5 ML VIAL ONE (12:12)
[2017-09-07] MEDS ORDERED: PROPOFOL 200 MG/20 ML VIAL IV ONE (12:12)
[2017-09-07] MEDS: SODIUM CHLORIDE 0.9% 1,000 ML IV SCH ×2 (17:38→21:52)
[2017-09-07] MEDS: SIMVASTATIN 20 MG TABLET PO SCH (21:00)
[2017-09-08] MEDS: PIPERACILLIN/TAZOBACTAM 3,375 MG in SODIUM CHLORIDE 0.9% 100 ML IV SCH ×3 (03:11→19:58)
[2017-09-08] MEDS: SODIUM CHLORIDE 0.9% 1,000 ML IV SCH ×2 (03:45→10:00)
[2017-09-08] MEDS: PARoxetine 20 MG TABLET PO SCH (09:53)
[2017-09-08] MEDS: DILTIAZEM CD 120 MG CAPSULE PO SCH (09:53)
[2017-09-08] MEDS: LEVOTHYROXINE 25 MCG TABLET PO SCH (09:54)
[2017-09-08] MEDS: CARBIDOPA/LEVODOPA 10-100 MG TABLET PO SCH ×3 (09:54→20:00)
[2017-09-08] MEDS: PANTOPRAZOLE 40 MG VIAL IV SCH (09:55)
[2017-09-08 10:51] LABS: Albumin 1.7 G/DL (3.4-5.0); Bilirubin,Direct 3.23 MG/DL (0.0-0.20); Bilirubin,Indirect 0.6 MG/DL (0.0-1.0); Bilirubin,Total 3.8 MG/DL (0.2-1.0); Total Protein 5.5 G/DL (6.4-8.3)
[2017-09-08] MEDS: SIMVASTATIN 20 MG TABLET PO SCH (20:00)
[2017-09-09] MEDS: PIPERACILLIN/TAZOBACTAM 3,375 MG in SODIUM CHLORIDE 0.9% 100 ML IV SCH ×3 (03:08→18:32)
[2017-09-09 05:11] LABS: Basophils # 0.1 10*3/uL (0.0-0.2); Basophils % 0.6 % (0.0-0.8); Eosinophils # 0.6 10*3/uL (0.0-0.87); Eosinophils % 5.2 % (0.00-10.9); Hematocrit 26.2 VOL% (42.0-52.0); Hemoglobin 8.8 GM/DL (14.0-18.0); Immature Granulocytes % 1.5 %; Immature Granulocytes Absolute 0.19 #; Lymphocytes # 2.2 10*3/uL (1.4-4.0); Lymphocytes % 17.4 % (21.2-54.2); Mean Corpuscular HGB Conc 33.6 GM/DL (32-36); Mean Corpuscular Hemoglobin 32 PG (27-34); Mean Corpuscular Volume 95.6 FL (87-102); Monocytes # 0.7 10*3/uL (0.11-0.8); Monocytes % 5.3 % (1.7-12.7); Neutrophils # 8.7 10*3/uL (1.4-7.4); Platelet Count 495 T/CUMM (130-400); Red Blood Count 2.74 MC/CUMM (3.8-5.5); Red Cell Distribution Width 17.2 % (9.3-17.3); White Blood Count 12.4 T/CUMM (4-12)
[2017-09-09 05:36] LABS: Osmolality,Calculated 273.5 MOS/KG (273-304); Potassium 4.5 MMOL/L (3.5-5.1)
[2017-09-09 05:40] LABS: Albumin 1.9 G/DL (3.4-5.0); Bilirubin,Direct 3.07 MG/DL (0.0-0.20); Bilirubin,Indirect 0.6 MG/DL (0.0-1.0); Bilirubin,Total 3.7 MG/DL (0.2-1.0); Total Protein 6.1 G/DL (6.4-8.3)
[2017-09-09] MEDS: LEVOTHYROXINE 25 MCG TABLET PO SCH (09:20)
[2017-09-09] MEDS: CARBIDOPA/LEVODOPA 10-100 MG TABLET PO SCH ×3 (09:20→20:41)
[2017-09-09] MEDS: PARoxetine 20 MG TABLET PO SCH (09:20)
[2017-09-09] MEDS: PANTOPRAZOLE 40 MG VIAL IV SCH (09:20)
[2017-09-09] MEDS: DILTIAZEM CD 120 MG CAPSULE PO SCH (09:20)
[2017-09-09] MEDS ORDERED: FUROSEMIDE 40 MG/4 ML VIAL IV ONE (13:46)
[2017-09-09] MEDS: SIMVASTATIN 20 MG TABLET PO SCH (20:41)
[2017-09-10] MEDS: PIPERACILLIN/TAZOBACTAM 3,375 MG in SODIUM CHLORIDE 0.9% 100 ML IV SCH ×3 (02:58→18:33)
[2017-09-10 05:09] LABS: Basophils # 0.1 10*3/uL (0.0-0.2); Basophils % 0.8 % (0.0-0.8); Eosinophils # 0.5 10*3/uL (0.0-0.87); Eosinophils % 4.5 % (0.00-10.9); Hemoglobin 8.4 GM/DL (14.0-18.0); Immature Granulocytes % 1.1 %; Immature Granulocytes Absolute 0.12 #; Lymphocytes # 2.1 10*3/uL (1.4-4.0); Lymphocytes % 18.7 % (21.2-54.2); Mean Corpuscular HGB Conc 32.3 GM/DL (32-36); Mean Corpuscular Hemoglobin 31 PG (27-34); Mean Platelet Volume 9.6 FL (9.6-12.0); Monocytes # 0.7 10*3/uL (0.11-0.8); Monocytes % 5.9 % (1.7-12.7); Neutrophils # 7.8 10*3/uL (1.4-7.4); Platelet Count 489 T/CUMM (130-400); Red Blood Count 2.68 MC/CUMM (3.8-5.5); Red Cell Distribution Width 16.7 % (9.3-17.3); White Blood Count 11.3 T/CUMM (4-12)
[2017-09-10 05:38] LABS: Albumin 1.8 G/DL (3.4-5.0); Bilirubin,Direct 2.56 MG/DL (0.0-0.20); Bilirubin,Indirect 0.3 MG/DL (0.0-1.0); Bilirubin,Total 2.9 MG/DL (0.2-1.0); Osmolality,Calculated 275.4 MOS/KG (273-304); Potassium 3.9 MMOL/L (3.5-5.1); Total Protein 5.8 G/DL (6.4-8.3)
[2017-09-10] MEDS: PANTOPRAZOLE 40 MG VIAL IV SCH (09:14)
[2017-09-10] MEDS: LEVOTHYROXINE 25 MCG TABLET PO SCH (09:15)
[2017-09-10] MEDS: CARBIDOPA/LEVODOPA 10-100 MG TABLET PO SCH ×3 (09:16→20:32)
[2017-09-10] MEDS: PARoxetine 20 MG TABLET PO SCH (09:16)
[2017-09-10] MEDS: DILTIAZEM CD 120 MG CAPSULE PO SCH (09:17)
[2017-09-10] MEDS: SIMVASTATIN 20 MG TABLET PO SCH (20:32)
[2017-09-11] MEDS: PIPERACILLIN/TAZOBACTAM 3,375 MG in SODIUM CHLORIDE 0.9% 100 ML IV SCH ×3 (02:54→18:23)
[2017-09-11 05:27] LABS: Basophils # 0.1 10*3/uL (0.0-0.2); Basophils % 0.7 % (0.0-0.8); Eosinophils # 0.5 10*3/uL (0.0-0.87); Eosinophils % 3.7 % (0.00-10.9); Hematocrit 26.2 VOL% (42.0-52.0); Hemoglobin 8.9 GM/DL (14.0-18.0); Immature Granulocytes % 0.9 %; Immature Granulocytes Absolute 0.12 #; Lymphocytes % 14.8 % (21.2-54.2); Mean Corpuscular Hemoglobin 33 PG (27-34); Mean Platelet Volume 9.6 FL (9.6-12.0); Monocytes # 0.7 10*3/uL (0.11-0.8); Monocytes % 5.2 % (1.7-12.7); Neutrophils # 10.2 10*3/uL (1.4-7.4); Neutrophils % 74.7 % (38.7-73.9); Platelet Count 501 T/CUMM (130-400); Red Blood Count 2.73 MC/CUMM (3.8-5.5); Red Cell Distribution Width 16.4 % (9.3-17.3); White Blood Count 13.7 T/CUMM (4-12)
[2017-09-11 05:57] LABS: Calcium 8.1 MG/DL (8.5-10.1); Osmolality,Calculated 275.5 MOS/KG (273-304); Potassium 4.7 MMOL/L (3.5-5.1)
[2017-09-11 06:03] LABS: Albumin 1.9 G/DL (3.4-5.0); Bilirubin,Direct 2.46 MG/DL (0.0-0.20); Bilirubin,Indirect 0.5 MG/DL (0.0-1.0); Total Protein 5.8 G/DL (6.4-8.3)
[2017-09-11] MEDS: DILTIAZEM CD 120 MG CAPSULE PO SCH (10:36)
[2017-09-11] MEDS: CARBIDOPA/LEVODOPA 10-100 MG TABLET PO SCH ×3 (10:36→20:39)
[2017-09-11] MEDS: LEVOTHYROXINE 25 MCG TABLET PO SCH (10:36)
[2017-09-11] MEDS: PARoxetine 20 MG TABLET PO SCH (10:36)
[2017-09-11] MEDS: PANTOPRAZOLE 40 MG VIAL IV SCH (10:36)
[2017-09-11] MEDS: SIMVASTATIN 20 MG TABLET PO SCH (20:39)
[2017-09-12] MEDS: PIPERACILLIN/TAZOBACTAM 3,375 MG in SODIUM CHLORIDE 0.9% 100 ML IV SCH ×2 (03:39→12:02)
[2017-09-12 05:57] LABS: Bilirubin,Direct 2.23 MG/DL (0.0-0.20); Bilirubin,Indirect 0.4 MG/DL (0.0-1.0); Bilirubin,Total 2.6 MG/DL (0.2-1.0); Total Protein 6.5 G/DL (6.4-8.3)
[2017-09-12] MEDS: LEVOTHYROXINE 25 MCG TABLET PO SCH (09:58)
[2017-09-12] MEDS: DILTIAZEM CD 120 MG CAPSULE PO SCH (09:58)
[2017-09-12] MEDS: PARoxetine 20 MG TABLET PO SCH (09:58)
[2017-09-12] MEDS: CARBIDOPA/LEVODOPA 10-100 MG TABLET PO SCH (09:58)
[2017-09-12] MEDS: PANTOPRAZOLE 40 MG VIAL IV SCH (09:59)
[2017-09-12 11:21] VITALS: BP 152/70
== END 2017-09-12 12:50 | disposition home health service (06) | DRG 444 ==
LOC: N.ED 14:31 → N.EDINP 17:40 → SUATTDRO 17:40 → N.3E 20:35
PROVIDERS: ADMIT Internal Medicine; ATTEND Internal Medicine

== ENCOUNTER 2018-03-03 16:24 | Observation (INO) ==
[2018-03-03 18:06] LABS: Albumin 3.3 G/DL (3.4-5.0); Bilirubin,Total 3.5 MG/DL (0.2-1.0); Osmolality,Calculated 277.7 MOS/KG (273-304); Potassium 3.6 MMOL/L (3.5-5.1); Total Protein 6.9 G/DL (6.4-8.3)
[2018-03-03 18:34] LABS: Apearance,Urine CLEAR (Clear); Bilirubin,Urine Negative (Negative); Blood, Urine Small mg/dL (Negative); Glucose,Urine (UA) Negative (Negative); Hyaline Casts,Urine 1 /LPF (0-3); Ketones,Urine Negative (Negative); Mucus,Urine Occasional /LPF (Occasional); Nitrite,Urine Negative (Negative); Protein,Urine Negative; RBC,Urine 1 /HPF (0-4); Urine Color Amber (Yellow); Urine Specific Gravity 1.009 (1.001-1.035); WBC,Urine 1 /HPF (0-6)
[2018-03-03 18:40] LABS: Barbiturates Screen,Urine Negative (Negative); Benzodiazepines Screen,Urine Positive (Negative); Cannabinoid Screen,Urine Negative (Negative); Opiate Screen,Urine Positive (Negative); Phencyclidine Screen,Urine Negative (Negative)
[2018-03-03 19:43] LABS: Basophils % 0.3 % (0.0-0.8); Eosinophils % 11.2 % (0.00-10.9); Hematocrit 40.6 VOL% (42.0-52.0); Hemoglobin 13.2 GM/DL (14.0-18.0); Immature Granulocytes % 0.4 %; Immature Granulocytes Absolute 0.04 #; Lymphocytes # 1.3 10*3/uL (1.4-4.0); Mean Corpuscular HGB Conc 32.5 GM/DL (32-36); Mean Corpuscular Hemoglobin 31 PG (27-34); Mean Corpuscular Volume 94.9 FL (87-102); Mean Platelet Volume 9.6 FL (9.6-12.0); Monocytes # 0.6 10*3/uL (0.11-0.8); Monocytes % 6.8 % (1.7-12.7); Neutrophils # 6.1 10*3/uL (1.4-7.4); Neutrophils % 67.3 % (38.7-73.9); Platelet Count 160 T/CUMM (130-400); Red Blood Count 4.28 MC/CUMM (3.8-5.5); Red Cell Distribution Width 13.9 % (9.3-17.3); White Blood Count 9.1 T/CUMM (4-12)
[2018-03-03 20:53] LABS: Band Neutrophils 1 % (0-10); Eosinophils 8 % (0-10); Lymphocytes 15 % (20-55); Platelet Estimate Normal; Segmented Neutrophils 74 % (50-85); Total Cells Counted 100
[2018-03-03] MEDS ORDERED: ONDANSETRON 4 MG/2 ML VIAL IV PRN (21:01)
[2018-03-03] MEDS ORDERED: diphenhydrAMINE CAP 25 MG CAPSULE PO PRN (21:01)
[2018-03-03] MEDS ORDERED: LACTULOSE 20 GM/30 ML UDCUP PO PRN (21:01)
[2018-03-03] MEDS ORDERED: PROMETHAZINE 25 MG TABLET PO PRN (21:01)
[2018-03-03] MEDS ORDERED: MORPHINE 4 MG/1 ML VIAL IV PRN (21:01)
[2018-03-04] MEDS: PANTOPRAZOLE 40 MG TABLET PO SCH (15:54)
[2018-03-05] MEDS: PANTOPRAZOLE 40 MG TABLET PO SCH (08:37)
[2018-03-06] MEDS: PANTOPRAZOLE 40 MG TABLET PO SCH (08:13)
[2018-03-06 11:50] VITALS: BP 131/80
== END 2018-03-06 15:13 | disposition hospice, home (50) ==
LOC: EDUNIT# → EDBD → N.ED 16:24 → N.EDINP 16:24 → N.5E 22:20
PROVIDERS: ADMIT Internal Medicine; ATTEND Internal Medicine